=== PATIENT | female | born 1970 | race Caucasian/White ===

== ENCOUNTER 2022-01-31 17:39 | Emergency (ER) | payer OTHER ==
[2022-01-31] MEDS ORDERED: ACETAMINOPHEN 500 MG TABLET (FP) PO ONE (17:56)
[2022-01-31 18:12] VITALS: BP 135/78; PULSE 72; RESP 18; TEMP 98.7; BMI 21.7
== END 2022-01-31 19:02 | disposition home or self-care (01) ==
LOC: FER 17:39
DX: S92.911A Unspecified fracture of right toe(s), initial encounter for closed fracture (principal); S20.212A Contusion of left front wall of thorax, initial encounter; W01.0XXA Fall on same level from slipping, tripping and stumbling without subsequent striking against object, initial encounter
CPT/HCPCS: 71101-TC-LT-FY; 73630-TC-RT-FY; 99284-25